=== PATIENT | male | born 1955 | race Caucasian/White ===

== ENCOUNTER 2019-01-09 15:28 | Emergency (ER) | payer OTHER, SELFPAY ==
[2019-01-09 15:30] VITALS: BP 147/103; PULSE 88; RESP 17; TEMP 36.9; O2SAT 97; BMI 26.9
--- NOTE | 2019-01-09 15:50 | ED.VIS.GEN ---
History of Present Illness <Narendra Galeas - Last Filed: 01/09/19 16:56> Informant: Patient Onset: Today Narrative: Patient presents to the ED with right eye pain that started this morning. States that he placed his contact lens in his right eye and progressively developed worsening right eye pain. He states that he removed his contact and is still having pain. He does not wear his contacts for a prolonged amount of time. He denies any injury to his right eye. <Mamta Lugo - Last Filed: 01/09/19 17:03> Chief Complaint: Eye Problem Past Medical History <Narendra Galeas - Last Filed: 01/09/19 16:56> Smoking Status: Never smoker <Mamta Lugo - Last Filed: 01/09/19 17:03> - Allergies and Home Meds Allergies/Adverse Reactions: Allergies No Known Allergies Allergy (Verified 01/09/19 15:30) Primary Care Physician: Madelyn Last MD [STAFF PHYSICIAN] - [facility] Doctor,Out of [Primary Care Provider] - Review of Systems General: Denies: Chills, Fever, Sweats Eyes: Reports: - - Right eye pain. Denies: Visual changes - bilaterally, Diplopia ENT: Denies: Rhinorrhea, Sore throat Cardiovascular: Denies: Chest pain, Palpitations Respiratory: Denies: Dyspnea, Cough, Dyspnea on exertion Gastrointestinal: Denies: Abdominal pain, Nausea, Vomiting, Diarrhea, Melena, Hematochezia Genitourinary: Denies: Dysuria, Hematuria, Frequency Musculoskeletal: Denies: Back pain, Extremity Pain Skin: Denies: Rash, Wounds Neurological: Denies: Headache, Weakness, Numbness <Mamta Lugo - Last Filed: 01/09/19 17:03> Physical Exam Vital Signs/Narrative: Vital Signs Temp Pulse Resp BP Pulse Ox 01/09/19 15:30 98.5 F 88 17 147/103 H 97 <Narendra Galeas - Last Filed: 01/09/19 16:56> Vital Signs/Narrative: Vital Signs Temp Pulse Resp BP Pulse Ox 01/09/19 15:30 98.5 F 88 17 147/103 H 97 General: Well nourished, Well developed, No Acute Distress Head: Normocephalic, Atraumatic Eyes: Perrl, EOMI, - - Conjunctival injection to the right eye. Right eye was stained with fluorescein and evaluated under slit lamp. Evidence of corneal abrasion is noted over the pupil. No pupillary defects. ENT: Moist mucous membranes, No rhinorrhea Neck: Supple, Nontender Cardiovascular: Regular rate, Regular rhythm, No murmurs Respiratory: No distress, CTA bilaterally, Chest nontender Abdomen: Soft, Nontender, Nondistended, Normal bowel sounds Back: Nontender, Normal Inspection Extremities: Nontender, No edema Skin: Normal color, No rash Neurological: Alert, Oriented x3, Cranial nerves II-XII grossly intact, Normal Strength, Normal Sensation Psychological: Normal affect, Normal Mood <Mamta Lugo - Last Filed: 01/09/19 17:03> Diagnostic/Tx/Re-eval - Medical Decision Making Patient presents to the ED with right eye pain that started this morning. Following history and physical exam, patient does appear to have a corneal abrasion to right eye. Patient's case was discussed with clinical laboratory assistant on-call, Dr. Last who requested patient be placed on ciprofloxacin ophthalmic drops and erythromycin ophthalmic ointment. He was given her office information and will contact the office on Friday. He was educated on signs/symptoms to return to the ED. He is provided discharge instructions. He was agreeable to plan. Impression: Right corneal abrasion. Disposition: Home stable. <Mamta Lugo - Last Filed: 01/09/19 17:03> ED Disposition <Narendra Galeas - Last Filed: 01/09/19 16:56> <Mamta Lugo - Last Filed: 01/09/19 17:03> - Plan for ED Patient: Disposition: Home or Assisted Living Instructions: ED Corneal Abrasion Prescriptions: Ciprofloxacin 0.3% [Ciloxan] 1 drp RIGHT EYE Q2H #1 bottle Prescription Printed Erythromycin Ophthalmic 1 applic RIGHT EYE 4X/DAY #1 opth.tube Prescription Printed Referrals: [facility] Doctor,Out of [Primary Care Provider] - Madelyn Last MD [STAFF PHYSICIAN] -
[2019-01-09 17:17] VITALS: BP 138/100; PULSE 81; RESP 16; O2SAT 100
[2019-01-09] MEDS: Tetracaine 0.5% Ophthalmic Bottle 1 DRP RIGHT EYE (17:23)
== END 2019-01-09 17:25 | disposition home or self-care (01) ==
PROVIDERS: Emergency Provider Emergency Medicine
DX: H18.821 Corneal disorder due to contact lens, right eye (principal); S05.01XA Injury of conjunctiva and corneal abrasion without foreign body, right eye, initial encounter; X58.XXXA Exposure to other specified factors, initial encounter
CPT/HCPCS: 99283

== ENCOUNTER 2019-01-10 10:14 | Emergency (ER) | payer OTHER, SELFPAY ==
[2019-01-09 15:30] VITALS: BMI 26.9
[2019-01-10 10:15] VITALS: BP 171/118; PULSE 80; RESP 17; TEMP 36.6; O2SAT 99; BMI 26.4
--- NOTE | 2019-01-10 12:11 | ED.DCSUM_ITS ---
- ER Visit Summary Date of Service: 01/10/19 Chief Complaint: Right eye pain and watering History of Present Illness: The patient is a 63 M past medical history of hypertension high cholesterol. Treated yesterday in the emergency department for corneal abrasion. History of contact use. No prior eye surgery. He has been on Cipro eyedrops and antibiotic ointment erythromycin and just feels like is getting worse. He has been using tetracaine for the pain. Physical Examination: Older male no acute distress. Vital signs are stable afebrile. HEENT exam strongly advised motions are intact. Right eye is injected and watering. There is no pus or discharge. There is no orbital or periorbital cellulitis or significant swelling. Extra motions are intact. Neck nontender no lymphadenopathy. Lungs clear to auscultation. Heart regular rhythm. Otherwise exam unremarkable. Tetracaine was instilled in the right eye. Along with fluoroscein drops. Slit lamp examination performed. He has a large corneal abrasion over the pupil. It looks the same as yesterday as I examined him yesterday. There is no ulcer. And no infection. Test Results: Visual acuity shows was attempted but he could not do it with his right eye. Emergency Department Course and Treatment: We will continue the tetracaine drops. The antibiotic ointment erythromycin and the Cipro eyedrops. I will also write him for some limited Vicodin for pain. And follow-up with the tack picker Dr. Last tomorrow. Treatment Plan: As above. Disposition: Discharge Impression: Acute right eye corneal abrasion This note was generated with [employer] dictation software. It may contain incorrect words, spelling, and punctuation that were not noted in review of the chart prior to signing ED Disposition - Plan for ED Patient: Referrals: [facility] Doctor,Out of [Primary Care Provider] -
[2019-01-10] MEDS: Tetracaine 0.5% Ophthalmic Bottle 4 DRP RIGHT EYE (12:20)
[2019-01-10] MEDS: Fluorescein 1 MG STRIP 1 STRIP RIGHT EYE (12:21)
--- NOTE | 2019-01-10 13:14 | ED.DEP ---
ED Disposition - Plan for ED Patient: Disposition: Home or Assisted Living Instructions: CORNEAL INJURY, Contact Lens, ED Corneal Abrasion Prescriptions: Hydrocodone/Acetaminophen [[place] 7.5-325 Tablet] 1 ea PO Q4H PRN PRN 5 Days #20 tab PRN Reason: Pain Prescription Printed Referrals: Madelyn Last MD [STAFF PHYSICIAN] - 1 Day Additional Instructions: Cool compresses to right eye. Motrin and Tylenol for pain and [place] for more severe pain. The [place] also has Tylenol in it. Eyedrops and eye ointment as previously prescribed. Call and follow-up with eye doctor tomorrow.
[2019-01-10 13:31] VITALS: BP 151/99; PULSE 100; RESP 18; O2SAT 99
--- NOTE | 2019-01-10 13:31 | ED.RN ---
CALLED PT TO PICK HIM UP, STATED SHE WILL BE HERE IN A FEW MINUTES.
== END 2019-01-10 13:32 | disposition home or self-care (01) ==
PROVIDERS: Emergency Provider Emergency Medicine
DX: H18.821 Corneal disorder due to contact lens, right eye (principal)
CPT/HCPCS: 99282

== ENCOUNTER 2020-08-08 14:13 | Outpatient (RCR) | payer OTHER, SELFPAY ==
[2020-08-29] MEDS: COVID-19 VACC, MRNA(PFIZER)/PF 30 MCG/0.3 ML SYRINGE IM (08:15)
== END 2020-10-31 23:59 ==
LOC: IMMUN 14:13
PROVIDERS: Referring Provider Family Medicine; Visit Provider Family Medicine
DX: Z23 Encounter for immunization (principal)
CPT/HCPCS: 0001A; 0002A; 91300